=== PATIENT | female | born 1950 | race Asian ===

== ENCOUNTER 2023-06-13 10:05 | Emergency (ER) | payer BC ==
[~2023-06-13] VITALS: Ht 162.6 cm; Wt 55.0 kg
[2023-06-13 10:18] VITALS: BP 160/84; PULSE 95; RESP 20; TEMP 98.3; O2SAT 96
[2023-06-13] MEDS ORDERED: ACETAMINOPHEN WITH CODEINE 300/30MG TABLET PO ONE (13:30)
[2023-06-13] MEDS ORDERED: ACETAMINOPHEN WITH CODEINE 300/30MG TABLET PO NR (13:40)
[2023-06-13] MEDS ORDERED: TOPUD MT (14:47)
== END 2023-06-13 15:06 | disposition home or self-care (01) ==
LOC: ER 10:05
DX: R07.89 Other chest pain (principal); E11.9 Type 2 diabetes mellitus without complications; V99.XXXA Unspecified transport accident, initial encounter; Y93.89 Activity, other specified; Y92.89 Other specified places as the place of occurrence of the external cause; Y99.8 Other external cause status
CPT/HCPCS: 71045; 71250; 93005; 99284